=== PATIENT | female | born 1950 | race Caucasian/White ===

== ENCOUNTER 2016-10-28 06:53 | Day surgery (SDC) | payer OTHER ==
[2016-10-28] MEDS ORDERED: Lactated Ringers 1,000 ML IV ONE ×2 (07:18→09:51)
[2016-10-28] MEDS ORDERED: Lactated Ringers 1,000 ML IV SCH (07:30)
[2016-10-28] MEDS ORDERED: DIPRIVAN 200 MG/20 ML IV ONE (09:30)
[2016-10-28] MEDS ORDERED: Ketamine HCl 50 MG/ML IV ONE (09:30)
[2016-10-28 10:42] VITALS: O2SAT 97
[2016-10-28 13:45] VITALS: BP 126/72; PULSE 56
--- NOTE | 2016-10-29 16:11 | OP ---
SURGERY DATE: 10/28/16 SURGERY TIME: 906 PREOPERATIVE DIAGNOSIS: 1. NEEDS SCREENING COLONOSCOPY. 2. REFLUX DISEASE. POSTOPERATIVE DIAGNOSIS: 1. GASTRITIS. 2. SMALL HIATAL HERNIA. 3. COLORECTAL POLYPS. PROCEDURE: 1. EGD with biopsy. 2. Colonoscopy WITH hot forceps polypectomy X 3. SURGEON: Dr. Morena Padilla. ANESTHESIA: MAC. ESTIMATED BLOOD LOSS: Minimal. COMPLICATIONS: None. SPECIMENS: 1. Antral biopsy. 2. Hepatic flexure polyp. 3. Descending colon polyp. 4. Rectal polyp. HISTORY OF PRESENT ILLNESS: This is a 66 y/o female who presents for screening colonoscopy. She also has reflux disease and so she is also going to be having an EGD. All risks, benefits, and alternatives to both procedures were discussed with the patient preoperatively. She understands and agrees to proceed. She was seen in the preoperative area and her remaining questions were answered. PROCEDURE DETAILS: She was brought back to the endoscopy suite. Anesthesia was induced. She was laid in the left lateral decubitus position. A complete time-out was performed. The scope was inserted into the mouth, oropharynx, and down into the esophagus. The upper and mid esophagus looked normal. In the distal esophagus, there was a very small hiatal hernia. The patient really does not have any reflux changes at the gastroesophageal junction site. The scope was advanced easily into the stomach. The stomach did have some mild to moderate gastritis throughout the stomach. The scope was advanced further into the duodenum. The duodenum looked normal. The scope was withdrawn back into the stomach. Biopsies were taken in the antrum to rule out any Helicobacter pylori disease. These were done with cold forceps. The sites were hemostatic after biopsy. On a retroflex view, we did revisualize the small hiatal hernia and some mild gastritis. There were no other findings throughout the entire stomach. The scope was then desufflated and then the scope was carefully withdrawn. The patient tolerated this procedure well. She was then repositioned for colonoscopy. Digital rectal exam was done. This was normal. Scope was inserted and carefully advanced to the cecum. There was a small amount of liquid stool throughout the colon that had to be suctioned free and irrigated. A very small or flat lesion could be missed. Slight tortuosity in the descending colon was navigated with very gentle abdominal pressure. We were able to guide the scope all the way to the level of the cecum. The ileocecal valve as well as the appendiceal orifice were visualized. The scope was then carefully withdrawn taking a good circumferential view. There were 3 polyps that were identified, 1 in the hepatic flexure, 1 in the descending colon, and 1 in the rectum. All appeared benign. All were taken with hot forceps polypectomy in entirety and sites were all hemostatic. I did not see any significant other findings. The colon mucosa looked very healthy. The scope was able to be withdrawn. The patient tolerated the procedure very well. There were no immediate complications. Plan will be for a repeat colonoscopy in approximately 3 years for screening due to her polyp disease. We will repeat this sooner should she have any new symptoms and we will repeat her EGD on a PRN basis. She will be taking proton pump inhibitor therapy to help with her reflux symptoms as well as her gastritis.
== END 2016-10-28 11:15 | disposition home or self-care (01) ==
LOC: SDC 06:53
PROVIDERS: ATTEND Surgery
PROC: 0DB68ZX Excision of Stomach, Via Natural or Artificial Opening Endoscopic, Diagnostic (ICD-10-PCS; principal; 2016-10-28)
PROC: 0DBM8ZX Excision of Descending Colon, Via Natural or Artificial Opening Endoscopic, Diagnostic (ICD-10-PCS; 2016-10-28)
PROC: 0DBP8ZX Excision of Rectum, Via Natural or Artificial Opening Endoscopic, Diagnostic (ICD-10-PCS; 2016-10-28)
PROC: 0DBL8ZX Excision of Transverse Colon, Via Natural or Artificial Opening Endoscopic, Diagnostic (ICD-10-PCS; 2016-10-28)
DX: K29.70 Gastritis, unspecified, without bleeding (principal); D12.3 Benign neoplasm of transverse colon; D12.4 Benign neoplasm of descending colon; K62.1 Rectal polyp; Z12.11 Encounter for screening for malignant neoplasm of colon; K21.9 Gastro-esophageal reflux disease without esophagitis; K44.9 Diaphragmatic hernia without obstruction or gangrene
CPT/HCPCS: 00740; 00810; 36415; 88305; J2704

== ENCOUNTER 2017-11-01 12:48 | Emergency (ER) | payer OTHER ==
--- NOTE | 2017-11-01 13:47 | ERPHSYRPT ---
- History of Present Illness Time Seen by Provider: 11/01/17 13:34 Source: patient Exam Limitations: no limitations Patient Subjective Stated Complaint: PT states "I do not know what I did to my left hip but it really hurts. I was exercising last and on monday it started to hurt and now I can barely move my hip at all." Triage Nursing Assessment: Pt alert and oriented X 3, skin pwd. PT able to bear minimal weight on her left hip, moves the extremety gingerly, groaning in pain. Pt has no shortening or rotation noted, CSM X 4 Physician History: The patient is a 67-year-old female complaining of pain in her left hip, left buttocks, and left groin that has been intermittent since last Monday morning. On she started an exercise called not in climbing in which you lift and twist your legs one at a time as high as you can go with it. After the exercise, she felt okay but the next morning her left hip was hurting significantly. She thought she had pulled a muscle and took it easy that Monday. Over the weekend and for the next several days the pain was intermittent. Yesterday the pain was not as bad so she was doing some walking. Today the pain is much worse again. The pain is much worse when she lifts her left leg or when she twists it at the hip. She denies fever or chills. She denies abdominal pain or nausea. She denies urinary problems. She denies abdominal pain. Her past medical history is significant for hypothyroidism, GERD, and headaches. Method of Injury: sports injury Occurred: days ago (5) Quality: intermittent, aching, sharpness Severity of Pain-Max: severe Severity of Pain-Current: severe Lower Extremities Pain: hip: left Modifying Factors: Improves With: movement Associated Symptoms: none Allergies/Adverse Reactions: No Known Allergies Allergy (Verified 03/10/17 13:24) Home Medications: Levothyroxine Sodium [Synthroid] 50 mcg PO DAILY 03/19/12 [History] Omeprazole 20 MG [Prilosec 20 mg] 20 mg PO DAILY 10/25/16 [History] Indomethacin 50 mg PO TID 03/10/17 [History] Hx Tetanus, Diphtheria Vaccination/Date Given: No Hx Influenza Vaccination/Date Given: Yes Hx Pneumococcal Vaccination/Date Given: No Immunizations Up to Date: Yes - Review of Systems Constitutional: No Fever, No Chills Eyes: No Symptoms Ears, Nose, & Throat: No Symptoms Respiratory: No Cough, No Dyspnea Cardiac: No Chest Pain, No Edema, No Syncope Abdominal/Gastrointestinal: No Abdominal Pain, No Nausea, No Vomiting, No Diarrhea Genitourinary Symptoms: No Dysuria Musculoskeletal: Joint Pain, No Back Pain, No Neck Pain Skin: No Rash Neurological: No Dizziness, No Focal Weakness, No Sensory Changes Psychological: No Symptoms Endocrine: No Symptoms Hematologic/Lymphatic: No Symptoms Immunological/Allergic: No Symptoms All Other Systems: Reviewed and Negative - Past Medical History Pertinent Past Medical History: Yes Neurological History: Other ENT History: Other Cardiac History: No Pertinent History Respiratory History: No Pertinent History Endocrine Medical History: Hypothyroidism Musculoskeletal History: Osteoarthritis GI Medical History: GERD History: No Pertinent History Psycho-Social History: No Pertinent History Female Reproductive Disorders: Fibroids Other Medical History: fractured skull at 17 mos old, heart cath, - Past Surgical History Past Surgical History: Yes Neuro Surgical History: No Pertinent History Cardiac: No Pertinent History Gastrointestinal: No Pertinent History Genitourinary: No Pertinent History Musculoskeletal: No Pertinent History Female Surgical History: Hysterectomy, Other Other Surgical History: t&a. BSO - Social History Smoking Status: Never smoker Exposure to second hand smoke: No Drug Use: none Patient Lives Alone: No - Female History Hx Now: No - Nursing Vital Signs Nursing Vital Signs: Initial Vital Signs Temperature 98.6 F 11/01/17 12:54 Pulse Rate 70 11/01/17 12:54 Respiratory Rate 18 11/01/17 12:54 Blood Pressure 180/95 11/01/17 12:54 O2 Sat by Pulse Oximetry 97 11/01/17 12:54 Pain Scale Pain Intensity 4 - Physical Exam General Appearance: moderate distress Eyes, Ears, Nose, Throat Exam: moist mucous membranes Neck Exam: non-tender, supple Cardiovascular/Respiratory Exam: chest non-tender, normal breath sounds, regular rate/rhythm, no respiratory distress Gastrointestinal/Abdominal Exam: non-tender, guarding Back Exam: normal inspection, No vertebral tenderness Hips Exam: right: non-tender, normal inspection, normal range of motion, left: limited range of motion, pain, soft tissue tenderness Legs Exam: right leg: non-tender, normal inspection, normal range of motion, left leg: soft tissue tenderness (left inner thigh and groin) Knees Exam: bilateral knee: non-tender, normal inspection Ankle Exam: bilateral ankle: non-tender, normal inspection Foot Exam: bilateral foot: non-tender, normal inspection Neuro/Tendon Exam: normal sensation, normal motor functions Mental Status Exam: alert, oriented x 3, cooperative Skin Exam: normal color, warm, dry SpO2 Interpretation: normal SpO2: 97 Oxygen Delivery: Room Air - Radiology Exams Left Hip X-ray Interpretation: Teleradiologist Report, Negative, No Fracture (per Dr Alaniz) Pelvis X-ray Interpretation: Teleradiologist Report, Negative, No Fracture (per Dr Alaniz) Ordered Tests: Active Orders 24 hr Category Date Time Status HIP UNI (2V) INCL PEL IF DONE Stat Exams 11/01/17 15:09 Completed BMP Stat Lab 11/01/17 14:15 Completed CBC W DIFF Stat Lab 11/01/17 14:15 Completed D-DIMER QUANTITATION Stat Lab 11/01/17 14:15 Completed Medication Summary Discontinued Medications Generic Name Dose Route Start Last Admin Trade Name Manjula PRN Reason Stop Dose Admin Cyclobenzaprine HCl 5 mg 11/01/17 13:55 11/01/17 14:01 Cyclobenzaprine 10 Mg PO 11/01/17 13:56 5 mg STAT ONE Administration Cyclobenzaprine HCl Confirm 11/01/17 14:01 Cyclobenzaprine 10 Mg Administered 11/01/17 14:02 Dose 10 mg .ROUTE .[employer] ONE Lab/Rad Data: Laboratory Result Diagrams 11/01/17 14:15 11/01/17 14:15 Laboratory Results 11/01/17 11/01/17 11/01/17 Range/Units 14:15 14:15 14:15 WBC 7.8 (4.0-10.5) K/mm3 RBC 4.59 (4.1-5.4) M/mm3 Hgb 13.5 (12.0-16.0) gm/dl Hct 40.3 (35-47) % MCV 87.8 (78-100) fl MCH 29.4 (26-32) pg MCHC 33.5 (32-36) g/dl RDW 14.3 H (11.5-14.0) % Plt Count 344 (150-450) K/mm3 MPV 9.4 (6-9.5) fl Gran % 66.0 (36.0-66.0) % Eos # (Auto) 0.09 (0-0.5) Absolute Lymphs (auto) 1.91 (1.0-4.6) Absolute Monos (auto) 0.60 (0.0-1.3) Lymphocytes % 24.6 (24.0-44.0) % Monocytes % 7.7 (0.0-12.0) % Eosinophils % 1.2 (0.00-5.0) % Basophils % 0.5 (0.0-0.4) % Absolute Granulocytes 5.14 (1.4-6.9) Basophils # 0.04 (0-0.4) D-Dimer 487 (215-500) ng/mL Sodium 143 (137-145) mmol/L Potassium 4.2 (3.5-5.1) mmol/L Chloride 106 (98-107) mmol/L Carbon Dioxide 29 (22-30) mmol/L Anion Gap 11.7 (5-15) MEQ/L BUN 23 H (7-17) mg/dL Creatinine 0.84 (0.52-1.04) mg/dL Estimated GFR > 60.0 ML/MIN Glucose 93 (74-106) mg/dL Calcium 9.6 (8.4-10.2) mg/dL - Progress Progress: improved Counseled pt/family regarding: rad results - Departure Time of Disposition: 17:00 Departure Disposition: Home Clinical Impression: Muscle strain Condition: Stable Critical Care Time: No Referrals: QUENTIN MILLER [Primary Care Provider] - Additional Instructions: You have pulled a muscle in her left hip. The x-rays of your left hip and pelvis were both negative except for some mild arthritis in your left hip. You were given Flexeril 5 mg in the ER. Continue to take Flexeril 5 mg every 8 hours as needed. Take it easy for the next few days and that they pulled muscle repair itself. Follow-up as needed. Prescriptions: Cyclobenzaprine HCl [Flexeril] 5 mg PO Q8H PRN PRN #10 tablet PRN Reason: Pain
[2017-11-01] MEDS ORDERED: Cyclobenzaprine 10 MG PO ONE (13:55)
[2017-11-01] MEDS ORDERED: Cyclobenzaprine 10 MG ONE (14:01)
[2017-11-01 14:35] LABS: BASOPHIL % 0.5 % (0.0-0.4); Basophil (Absolute #) 0.04 (0-0.4); Eosinophil % 1.2 % (0.00-5.0); Eosinophil (Absolute #) 0.09 (0-0.5); Granulocyte Absolute (ANC) 5.14 (1.4-6.9); Hematocrit 40.3 % (35-47); Hemoglobin 13.5 gm/dl (12.0-16.0); Lymphocyte (Absolute #) 1.91 (1.0-4.6); Lymphocytes % 24.6 % (24.0-44.0); Mean Cell Volume 87.8 fl (78-100); Mean Corpuscular Hemoglobin 29.4 pg (26-32); Mean Corpuscular Hgb Concent. 33.5 g/dl (32-36); Mean Platelet Volume 9.4 fl (6-9.5); Monocytes % 7.7 % (0.0-12.0); Platelet Count 344 K/mm3 (150-450); Red Blood Count 4.59 M/mm3 (4.1-5.4); Red Cell Distribution Width 14.3 % (11.5-14.0); White Blood Count 7.8 K/mm3 (4.0-10.5)
[2017-11-01 14:47] LABS: ANION GAP 11.7 MEQ/L (5-15); BLOOD UREA NITROGEN 23 mg/dL (7-17); CHLORIDE 106 mmol/L (98-107); Calcium 9.6 mg/dL (8.4-10.2); Carbon Dioxide 29 mmol/L (22-30); Creatinine 1 0.84 mg/dL (0.52-1.04); Glucose 93 mg/dL (74-106); Potassium 4.2 mmol/L (3.5-5.1); SODIUM 143 mmol/L (137-145)
--- NOTE | 2017-11-01 15:56 | XRAY ---
Exam: Two-view left hip series including an AP film of the pelvis from 11/01/2017. Comparison: Two-view left hip from 01/31/2017. Indication: Left hip pain, no known injury, pain for one week. Findings: 2 AP films of the pelvis including the hips and coned-down AP and frog-leg lateral views of the left hip were obtained. I note mild symmetric narrowing of both hip joint spaces. Minimal marginal acetabular spurs are seen within each hip. The pelvis reveals no fracture or dislocation. The sacroiliac joints reveal no significant abnormality. No other focal bone lesion is seen within the pelvis. Some small apparent calcified phleboliths are seen within the lower pelvis on each side of midline. The urinary bladder appears mildly distended. The left hip reveals no acute fracture or dislocation. There is a minimal spur at the lower medial margin of the left femoral head which I believe represents no change. Minimal hypertrophic change is seen at the margin of the greater trochanter of the left hip representing no change. No other focal bone lesion within the left hip is seen. Impression: 1. Mild symmetric osteoarthritis of both hip joints is seen. The appearance of the left hip is similar to 01/31/2017. 2. No fracture or other significant focal bone lesion is seen.
[2017-11-01 16:44] VITALS: BP 130/70; PULSE 88
[2017-11-01 17:00] VITALS: O2SAT 97
== END 2017-11-01 17:14 | disposition home or self-care (01) ==
LOC: ED 12:48
DX: T14.8XXA Other injury of unspecified body region, initial encounter (principal); Z79.899 Other long term (current) drug therapy; E03.9 Hypothyroidism, unspecified; K21.9 Gastro-esophageal reflux disease without esophagitis; M19.90 Unspecified osteoarthritis, unspecified site
CPT/HCPCS: 36415; 73502; 80048; 85025; 85379; 99284; A9270-GY

== ENCOUNTER 2018-11-21 15:48 | Day surgery (SDC) | payer OTHER ==
[2012-03-20 11:31] VITALS: BP 147/57
[2018-11-21] MEDS ORDERED: Marcaine 0.5% SDV 10 ML IJ ONE (15:49)
[2018-11-21] MEDS ORDERED: Depo-Medrol 40 MG/ML IM ONE (15:49)
[2018-11-21] MEDS ORDERED: Xylocaine 1% Vial 30 ML PF IJ ONE (15:49)
--- NOTE | 2018-11-21 16:55 | XRAY ---
Indication: Right trochanteric injection. Intraoperative fluoroscopy was provided for 25 seconds. Single digital spot image submitted for interpretation demonstrates needle tip just lateral to the right greater trochanter. Small amount of contrast injected for needle tip placement. Correlate with intraoperative findings/report.
--- NOTE | 2018-11-21 17:05 | XRAY ---
25 seconds fluoroscopy time in surgery for right greater trochanter injection.
--- NOTE | 2018-11-21 17:05 | XRAY ---
Indication: Left hip injection. Intraoperative fluoroscopy was provided for 11 seconds. Single digital spot image submitted for interpretation demonstrates needle tip just lateral to the left greater trochanter. Small amount of contrast injected for needle tip placement. Correlate with intraoperative findings/report.
--- NOTE | 2018-11-21 17:16 | XRAY ---
11 seconds fluoroscopy time in surgery for left greater trochanteric injection.
== END 2018-11-21 16:50 | disposition home or self-care (01) ==
LOC: SDC-PAIN 15:48
PROVIDERS: ATTEND Psychiatry & Neurology Pain Medicine
DX: M70.62 Trochanteric bursitis, left hip (principal); M70.61 Trochanteric bursitis, right hip; E03.9 Hypothyroidism, unspecified; Z79.899 Other long term (current) drug therapy
CPT/HCPCS: 20610; 73501; 77002; J1030; J2001; Q9966

== ENCOUNTER 2021-12-12 08:18 | Emergency (ER) | payer MEDICARE, OTHER ==
--- NOTE | 2021-12-12 08:25 | ERPHSYRPT ---
- History of Present Illness Time Seen by Provider: 12/12/21 08:24 Historian: patient, family Exam Limitations: no limitations Physician History: There is a 71-year-old female who is a patient of nurse practitioner Kenzie and presents with abdominal pain that has been present approximately 3 to 4 days. Patient states that the pain is generalized and is intermittently worse with cramping and radiates into her back bilaterally. Patient has associated nausea and diarrhea as well. Patient states there is no new medication but she did start Ozempic 8 weeks ago. Patient has a history of hypothyroidism and gastroesophageal reflux disease. Patient also has had a hysterectomy but no other surgeries. Patient has never had anything like this before. Patient denies chest pain. Patient denies shortness of breath. Timing/Duration: day(s) (3) Quality: cramping Abdominal Pain Onset Location: generalized abdomen Pain Radiation: back Severity of Pain-Max: moderate Severity of Pain-Current: moderate Associated Symptoms: diarrhea, nausea Previous symptoms: no prior history Allergies/Adverse Reactions: No Known Allergies Allergy (Verified 12/12/21 08:44) Home Medications: Levothyroxine Sodium [Synthroid] 75 mcg PO DAILY 03/19/12 [History] Omeprazole 20 MG [Prilosec 20 mg] 20 mg PO DAILY 10/25/16 [History] Indomethacin 25 mg PO DAILY 03/10/17 [History] Semaglutide [Ozempic] 1 ea WEEKLY 12/12/21 [History] Hx Tetanus, Diphtheria Vaccination/Date Given: No Hx Influenza Vaccination/Date Given: Yes Hx Pneumococcal Vaccination/Date Given: No Travel Risk - International Travel Have you traveled outside of the country in past 3 weeks: No - Coronavirus Screening Are you exhibiting any of the following symptoms?: No Close contact with a COVID-19 positive Pt in past 14-21 Days: No - Review of Systems Constitutional: No Symptoms Eyes: No Symptoms Ears, Nose, & Throat: No Symptoms Respiratory: No Symptoms Cardiac: No Symptoms Abdominal/Gastrointestinal: Abdominal Pain, Nausea, Diarrhea, No Vomiting, No Constipation Genitourinary Symptoms: No Symptoms Musculoskeletal: No Symptoms Skin: No Symptoms Neurological: No Symptoms Psychological: No Symptoms Endocrine: No Symptoms Hematologic/Lymphatic: No Symptoms Immunological/Allergic: No Symptoms All Other Systems: Reviewed and Negative - Past Medical History Pertinent Past Medical History: Yes Neurological History: No Pertinent History ENT History: Other Cardiac History: No Pertinent History Respiratory History: No Pertinent History Endocrine Medical History: Hypothyroidism Musculoskeletal History: Degenerative Disk Disease, Osteoarthritis GI Medical History: GERD History: No Pertinent History Psycho-Social History: No Pertinent History Female Reproductive Disorders: Fibroids Other Medical History: PATIENT IS FULLY VACCINATED FOR COVID-19. SX HX: HYSTERECTOMY, TONSILLECTOMY - Past Surgical History Past Surgical History: Yes Neuro Surgical History: No Pertinent History Cardiac: No Pertinent History Gastrointestinal: No Pertinent History Genitourinary: No Pertinent History Musculoskeletal: No Pertinent History Female Surgical History: Hysterectomy, Other Other Surgical History: t&a. BSO - Social History Smoking Status: Never smoker Exposure to second hand smoke: No Drug Use: none Patient Lives Alone: No - Nursing Vital Signs Nursing Vital Signs: Initial Vital Signs Temperature 97.0 F 12/12/21 08:36 Pulse Rate 96 H 12/12/21 08:36 Respiratory Rate 18 12/12/21 08:36 Blood Pressure 180/97 12/12/21 08:36 O2 Sat by Pulse Oximetry 97 12/12/21 08:36 Pain Scale Pain Intensity 9 - Physical Exam General Appearance: mild distress, alert, anxiety Eye Exam: PERRL/EOMI, eyes nml inspection Ears, Nose, Throat Exam: normal ENT inspection, moist mucous membranes Neck Exam: normal inspection, non-tender, supple, full range of motion Respiratory Exam: normal breath sounds, lungs clear, airway intact, No chest tenderness, No respiratory distress Cardiovascular Exam: regular rate/rhythm, normal heart sounds, normal peripheral pulses Gastrointestinal/Abdomen Exam: soft, normal bowel sounds, tenderness (Generalized), guarding (Generalized with palpation), No rebound Pelvic Exam: not done Rectal Exam: not done Back Exam: normal inspection, normal range of motion, No CVA tenderness, No vertebral tenderness Extremity Exam: normal inspection, normal range of motion, pelvis stable Neurologic Exam: alert, oriented x 3, cooperative, 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, normal mood/affect, nml cerebellar function, nml station & gait, sensation nml Skin Exam: normal color, warm, dry Lymphatic Exam: No adenopathy SpO2 Interpretation: normal O2 Delivery: Room Air - Course Nursing assessment & vital signs reviewed: Yes Ordered Tests: Active Orders 24 hr Category Date Time Status IV Insertion STAT Care 12/12/21 08:27 Active ABDOMEN AND PELVIS W/0 CONTRAS [CT] Stat Exams 12/12/21 09:03 Taken AMYLASE Stat Lab 12/12/21 08:40 Completed CBC W DIFF Stat Lab 12/12/21 08:40 Completed CMP Stat Lab 12/12/21 08:40 Completed LIPASE Stat Lab 12/12/21 08:40 Completed Lactic Acid Stat Lab 12/12/21 08:45 Completed UA W/RFX CULTURE Stat Lab 12/12/21 Ordered Medication Summary Discontinued Medications Generic Name Dose Route Start Last Admin Trade Name Manjula PRN Reason Stop Dose Admin Hydromorphone HCl 1 mg 12/12/21 08:44 12/12/21 08:48 Hydromorphone 1 Mg/1ml Inj 1 Mg/Ml Syringe IV 12/12/21 08:45 1 mg STAT ONE Administration Hydromorphone HCl Confirm 12/12/21 08:47 Hydromorphone 1 Mg/1ml Inj 1 Mg/Ml Syringe Administered 12/12/21 08:48 Dose 1 mg .ROUTE .[employer] ONE Sodium Chloride 1,000 mls @ 999 mls/hr 12/12/21 08:27 12/12/21 10:07 Sodium Chloride 0.9% 1000 Ml IV 12/12/21 09:27 Infused .Q1H1M STA Infusion Sodium Chloride Confirm 12/12/21 08:44 Sodium Chloride 0.9% 1000 Ml Administered 12/12/21 08:45 Dose 1,000 mls @ ud .ROUTE .[employer] ONE Levofloxacin/Dextrose 500 mg in 100 mls @ 100 mls/hr 12/12/21 09:53 12/12/21 09:59 Levofloxacin 500mg/100ml D5w IV 12/12/21 10:52 100 mls/hr STAT STA 100 mls/hr Administration Levofloxacin/Dextrose Confirm 12/12/21 09:58 Levofloxacin 500mg/100ml D5w Administered 12/12/21 09:59 Dose 500 mg in 100 mls @ ud IV .STK-MED ONE Metronidazole 500 mg 12/12/21 09:53 12/12/21 09:59 Metronidazole 500 Mg Tablet PO 12/12/21 09:54 500 mg STAT ONE Administration Metronidazole Confirm 12/12/21 09:58 Metronidazole 500 Mg Tablet Administered 12/12/21 09:59 Dose 500 mg .ROUTE .STK-[employer] ONE Ondansetron HCl 4 mg 12/12/21 08:44 12/12/21 08:47 Ondansetron Hcl 4 Mg/2 Ml Vial IV 12/12/21 08:45 4 mg STAT ONE Administration Ondansetron HCl Confirm 12/12/21 08:47 Ondansetron Hcl 4 Mg/2 Ml Vial Administered 12/12/21 08:48 Dose 4 mg .ROUTE .K-MED ONE Lab/Rad Data: Laboratory Result Diagrams 12/12/21 08:40 12/12/21 08:40 Laboratory Results 12/12/21 12/12/21 12/12/21 Range/Units 10:05 08:45 08:40 WBC (4.0-10.5) x10^3/uL RBC (4.1-5.4) x10^6/uL Hgb (12.0-16.0) g/dL Hct (35-47) % MCV (78-100) fL MCH (26-32) pg MCHC (32-36) g/dL RDW (11.5-14.0) % Plt Count (150-450) x10^3/uL MPV (7.5-11.0) fL Gran % (36.0-66.0) % Immature Gran % (Auto) (0.00-0.4) % Nucleat RBC Rel Count (0.00-0.1) % Eos # (Auto) (0-0.5) x10^3/uL Immature Gran # (Auto) (0.00-0.03) x10^3u/L Absolute Lymphs (auto) (1.0-4.6) x10^3/uL Absolute Monos (auto) (0.0-1.3) x10^3/uL Absolute Nucleated RBC (0.00-0.01) x10^3u/L Lymphocytes % (24.0-44.0) % Monocytes % (0.0-12.0) % Eosinophils % (0.00-5.0) % Basophils % (0.0-0.4) % Absolute Granulocytes (1.4-6.9) x10^3/uL Basophils # (0-0.4) x10^3/uL Sodium 139 (137-145) mmol/L Potassium 4.0 (3.5-5.1) mmol/L Chloride 106 (98-107) mmol/L Carbon Dioxide 22 (22-30) mmol/L Anion Gap 15.7 H (5-15) MEQ/L BUN 25 H (7-17) mg/dL Creatinine 0.98 (0.52-1.04) mg/dL Estimated GFR 59.5 ML/MIN Glucose 111 H (74-106) mg/dL Lactic Acid 1.0 (0.4-2.0) Calcium 9.7 (8.4-10.2) mg/dL Total Bilirubin 0.70 (0.2-1.3) mg/dL AST 24 (14-36) U/L ALT 17 (0-35) U/L Alkaline Phosphatase 96 (38-126) U/L Serum Total Protein 7.9 (6.3-8.2) g/dL Albumin 4.7 (3.5-5.0) g/dL Amylase 105 (30-110) U/L Lipase 134 (23-300) U/L Influenza Type A Ag NEGATIVE (NEGATIVE) Influenza Type B Ag NEGATIVE (NEGATIVE) RSV (PCR) NEGATIVE (Negative) SARS-CoV-2 (PCR) NEGATIVE (NEGATIVE) 12/12/21 Range/Units 08:40 WBC 8.4 (4.0-10.5) x10^3/uL RBC 5.08 (4.1-5.4) x10^6/uL Hgb 14.6 (12.0-16.0) g/dL Hct 43.3 (35-47) % MCV 85.2 (78-100) fL MCH 28.7 (26-32) pg MCHC 33.7 (32-36) g/dL RDW 13.4 (11.5-14.0) % Plt Count 370 (150-450) x10^3/uL MPV 9.6 (7.5-11.0) fL Gran % 65.4 (36.0-66.0) % Immature Gran % (Auto) 0.2 (0.00-0.4) % Nucleat RBC Rel Count 0.0 (0.00-0.1) % Eos # (Auto) 0.10 (0-0.5) x10^3/uL Immature Gran # (Auto) 0.02 (0.00-0.03) x10^3u/L Absolute Lymphs (auto) 2.00 (1.0-4.6) x10^3/uL Absolute Monos (auto) 0.74 (0.0-1.3) x10^3/uL Absolute Nucleated RBC 0.00 (0.00-0.01) x10^3u/L Lymphocytes % 23.9 L (24.0-44.0) % Monocytes % 8.8 (0.0-12.0) % Eosinophils % 1.2 (0.00-5.0) % Basophils % 0.5 (0.0-0.4) % Absolute Granulocytes 5.47 (1.4-6.9) x10^3/uL Basophils # 0.04 (0-0.4) x10^3/uL Sodium (137-145) mmol/L Potassium (3.5-5.1) mmol/L Chloride (98-107) mmol/L Carbon Dioxide (22-30) mmol/L Anion Gap (5-15) MEQ/L BUN (7-17) mg/dL Creatinine (0.52-1.04) mg/dL Estimated GFR ML/MIN Glucose (74-106) mg/dL Lactic Acid (0.4-2.0) Calcium (8.4-10.2) mg/dL Total Bilirubin (0.2-1.3) mg/dL AST (14-36) U/L ALT (0-35) U/L Alkaline Phosphatase (38-126) U/L Serum Total Protein (6.3-8.2) g/dL Albumin (3.5-5.0) g/dL Amylase (30-110) U/L Lipase (23-300) U/L Influenza Type A Ag (NEGATIVE) Influenza Type B Ag (NEGATIVE) RSV (PCR) (Negative) SARS-CoV-2 (PCR) (NEGATIVE) - Progress Progress: improved, re-examined Progress Note: 12/12/21 09:54 CAT scan of the abdomen pelvis without contrast shows dilated loops of small bowel with mild mesenteric fat stranding small amount of ascites without definite transition point although decompressed distal small bowel is present. ? Partial SBO or nonspecific enteritis. Counseled pt/family regarding: lab results, diagnosis, need for follow-up, rad results - Departure Departure Disposition: Home Clinical Impression: Enteritis Condition: Stable Critical Care Time: No Referrals: FLOR WELLS NP [Primary Care Provider] - Follow up/PCP as directed Additional Instructions: Drink plenty of clear liquids. Take your medication as prescribed. Follow-up with your primary care physician for further evaluation management. Return to the emergency department if symptoms worsen. Prescriptions: Ondansetron ODT 4 MG [Zofran Odt 4 mg] 4 mg PO Q6H PRN PRN #10 tablet PRN Reason: Vomiting Metronidazole 500 mg [Flagyl 500 MG] 500 mg PO TID #21 tablet
[2021-12-12] MEDS ORDERED: Sodium Chloride 0.9% 1000 ML 1,000 ML ONE (08:44)
[2021-12-12] MEDS: Sodium Chloride 0.9% 1000 ML 1,000 ML IV STA (08:46)
[2021-12-12] MEDS ORDERED: Zofran 4 MG/2 ML VIAL ONE (08:47)
[2021-12-12] MEDS ORDERED: Hydromorphone 1 mg/ml Injection ONE (08:47)
[2021-12-12] MEDS: Zofran 4 MG/2 ML VIAL IV ONE (08:47)
[2021-12-12] MEDS: Hydromorphone 1 mg/ml Injection IV ONE (08:48)
[2021-12-12 08:49] LABS: Absolute Neutrophil Ct (ANC) 5.47 x10^3/uL (1.4-6.9); Basophil (Absolute #) 0.04 x10^3/uL (0-0.4); Eosinophil % 1.2 % (0.00-5.0); Hematocrit 43.3 % (35-47); Hemoglobin 14.6 g/dL (12.0-16.0); Lymphocytes % 23.9 % (24.0-44.0); Mean Cell Volume 85.2 fL (78-100); Mean Corpuscular Hemoglobin 28.7 pg (26-32); Mean Corpuscular Hgb Concent. 33.7 g/dL (32-36); Mean Platelet Volume 9.6 fL (7.5-11.0); Monocyte (Absolute #) 0.74 x10^3/uL (0.0-1.3); Monocytes % 8.8 % (0.0-12.0); Neutrophil % 65.4 % (36.0-66.0); Platelet Count 370 x10^3/uL (150-450); Red Blood Count 5.08 x10^6/uL (4.1-5.4); Red Cell Distribution Width 13.4 % (11.5-14.0); White Blood Count 8.4 x10^3/uL (4.0-10.5)
[2021-12-12 09:03] LABS: ALBUMIN 4.7 g/dL (3.5-5.0); ANION GAP 15.7 MEQ/L (5-15); BILIRUBIN,TOTAL 0.7 mg/dL (0.2-1.3); Calcium 9.7 mg/dL (8.4-10.2); Creatinine 1 0.98 mg/dL (0.52-1.04); EST GLOMERULAR FILTRATION RATE 59.5 ML/MIN; Total Protein 7.9 g/dL (6.3-8.2)
[2021-12-12] MEDS ORDERED: Flagyl 500 MG ONE (09:58)
[2021-12-12] MEDS ORDERED: Levofloxacin 500MG/100ML D5W 500 MG/100 ML BAG IV ONE (09:58)
[2021-12-12] MEDS: Levofloxacin 500MG/100ML D5W 500 MG/100 ML BAG IV STA (09:59)
[2021-12-12] MEDS: Flagyl 500 MG PO ONE (09:59)
[2021-12-12 10:47] LABS: INFLUENZA A NEGATIVE (NEGATIVE); INFLUENZA B NEGATIVE (NEGATIVE); RESPIRATORY SYNCTIAL VIRUS NEGATIVE (Negative); SARS-CoV-2 Xpert Express NEGATIVE (NEGATIVE)
[2021-12-12 11:19] VITALS: BP 103/70; PULSE 72; O2SAT 94
--- NOTE | 2021-12-12 20:05 | XRAY ---
Indication: Abdomen pain, bloating, diarrhea. Suspect Covid 19. Multiple contiguous axial images obtained through the abdomen and pelvis without contrast. Comparison: None Study is slightly degraded by respiration artifact throughout. Lung bases demonstrates tiny right posterior gutter calcified granuloma and minimal bilateral dependent atelectasis. No infiltrate or effusion. Heart not enlarged. Stomach distended with food/fluid. Several small bowel loops are mildly fluid distended with fluid level in, ileus versus enteritis. Pelvis demonstrates small free fluid possibly reactive. No walled off fluid collection or free air. Appendix upper limits of normal without periappendiceal stranding. Previous hysterectomy. Normal bowel gas in right hemicolon. Remaining liver, gallbladder, pancreas, spleen, adrenal glands, kidneys, ureters, and bladder are unremarkable for noncontrast exam. Mild scattered aortoiliac calcifications without AAA. Osseous structures intact with mild osteopenia, minimal degenerative changes throughout the spine, T12 vertebral hemangioma, moderate L5-S1 degenerative disc disease, and moderate degenerative changes both hips. Impression: 1. Mild fluid distended small bowel loops with fluid leveling, ileus versus enteritis. Partial or early small bowel obstruction not completely excluded. Small pelvic free fluid presumed reactive. 2. Chronic findings including right lung base calcified granuloma, arteriosclerotic disease, and chronic bony findings. Comment: Preliminary interpretation made by [facility]. No critical discrepancy.
== END 2021-12-12 11:27 | disposition home or self-care (01) ==
LOC: ED 08:18
DX: K52.9 Noninfective gastroenteritis and colitis, unspecified (principal); R10.84 Generalized abdominal pain; R19.7 Diarrhea, unspecified; R11.0 Nausea; Z79.899 Other long term (current) drug therapy; Z20.828 Contact with and (suspected) exposure to other viral communicable diseases
CPT/HCPCS: 0241U; 36415; 74176; 80053; 82150; 83605; 83690; 85025; 96360; 96365; 96374; 96375; 99284; J1170; J1956; J2405; A9270-GY

== ENCOUNTER 2022-07-23 11:36 | Emergency (ER) | payer MEDICARE, OTHER ==
[2022-07-23] MEDS ORDERED: XYLOCAINE 1% HCL 20 ML MDV IJ ONE (11:37)
[2022-07-23] MEDS ORDERED: Adacel Vial IM ONE ×2 (12:00→12:15)
[2022-07-23] MEDS ORDERED: Rocephin 1000 MG INJ IM ONE (12:01)
[2022-07-23 12:06] VITALS: BP 149/94; PULSE 74; O2SAT 98
[2022-07-23] MEDS ORDERED: Rocephin 1000 MG INJ ONE (12:15)
--- NOTE | 2022-07-23 12:18 | ERPHSYRPT ---
- History of Present Illness Time Seen by Provider: 07/23/22 12:13 Source: patient Exam Limitations: no limitations Patient Subjective Stated Complaint: pt got a fish hook in her second finger of her right finger Triage Nursing Assessment: Pt brought to the ER by her , hypertensive, rates pain as 5/10, fish hook in the distal end of the second finger of the right hand, pulses normal, no other injuries Physician History: pt got a fish hook in her second finger of her right finger fish hook in the distal end of the second finger of the right hand, Occurred: just prior to arrival Extremities Pain Location: 2nd finger: right (fish hook) Allergies/Adverse Reactions: No Known Allergies Allergy (Verified 07/23/22 12:07) Home Medications: Levothyroxine Sodium [Synthroid] 75 mcg PO DAILY 03/19/12 [History] Omeprazole 20 MG [Prilosec 20 mg] 20 mg PO DAILY 10/25/16 [History] Indomethacin 25 mg PO DAILY 03/10/17 [History] Semaglutide [Ozempic] 1 ea WEEKLY 12/12/21 [History] Hx Tetanus, Diphtheria Vaccination/Date Given: No Hx Influenza Vaccination/Date Given: Yes Hx Pneumococcal Vaccination/Date Given: No Travel Risk - International Travel Have you traveled outside of the country in past 3 weeks: No - Coronavirus Screening Are you exhibiting any of the following symptoms?: No Close contact with a COVID-19 positive Pt in past 14-21 Days: No - Vaccine Status Have you recieved a Covid-19 vaccination: Yes [employer]: Moderna - Vaccination Dates Date of 2cond Vaccination (if applicable): 2020 Comment: / - Review of Systems Constitutional: No Symptoms Eyes: No Symptoms Ears, Nose, & Throat: No Symptoms Respiratory: No Symptoms Cardiac: No Symptoms Abdominal/Gastrointestinal: No Symptoms Genitourinary Symptoms: No Symptoms Musculoskeletal: No Symptoms Skin: No Symptoms Neurological: No Symptoms Psychological: No Symptoms Endocrine: No Symptoms Hematologic/Lymphatic: No Symptoms - Past Medical History Pertinent Past Medical History: Yes Neurological History: No Pertinent History ENT History: Other Cardiac History: No Pertinent History Respiratory History: No Pertinent History Endocrine Medical History: Hypothyroidism Musculoskeletal History: Degenerative Disk Disease, Osteoarthritis GI Medical History: GERD History: No Pertinent History Psycho-Social History: No Pertinent History Female Reproductive Disorders: Fibroids Other Medical History: PATIENT IS FULLY VACCINATED FOR COVID-19. SX HX: HYSTERECTOMY, TONSILLECTOMY - Past Surgical History Past Surgical History: Yes Neuro Surgical History: No Pertinent History Cardiac: No Pertinent History Gastrointestinal: No Pertinent History Genitourinary: No Pertinent History Musculoskeletal: No Pertinent History Female Surgical History: Hysterectomy, Other Other Surgical History: t&a. BSO - Social History Smoking Status: Never smoker Exposure to second hand smoke: No Drug Use: none Patient Lives Alone: No - Nursing Vital Signs Nursing Vital Signs: Initial Vital Signs Temperature 97.2 F 07/23/22 11:45 Pulse Rate 74 07/23/22 11:45 Blood Pressure 149/94 07/23/22 11:45 O2 Sat by Pulse Oximetry 98 07/23/22 11:45 Pain Scale Pain Intensity 5 - Physical Exam General Appearance: no apparent distress Eyes, Ears, Nose, Throat Exam: normal ENT inspection Neck Exam: normal inspection Cardiovascular/Respiratory Exam: chest non-tender Abdominal Exam: non-tender Shoulder Exam: normal inspection Elbow/Forearm Exam: normal inspection Wrist Exam: normal inspection Hand Exam: soft tissue tenderness (fish hansa in distal phalynx) SpO2: 98 - Course Nursing assessment & vital signs reviewed: Yes - Radiology Exams Hand X-ray Interpretation: Reviewed by me, Negative, No Fracture Ordered Tests: Active Orders 24 hr Category Date Time Status Wound Care STAT Care 07/23/22 12:01 Active HAND (MINIMUM 3 VIEWS) Stat Exams 07/23/22 12:02 Ordered Medication Summary Discontinued Medications Generic Name Dose Route Start Last Admin Trade Name Freq PRN Reason Stop Dose Admin Ceftriaxone Sodium 1,000 mg 07/23/22 12:01 Ceftriaxone Sodium 1000 Mg Inj Vial IM 07/23/22 12:02 STAT ONE Diphtheria/Tetanus/Acell Pertussis 0.5 ml 07/23/22 12:00 Tdap --Diph,Pertuss(Acell),Tet Vac/Pf 0.5 Ml Vial IM 07/23/22 12:01 .ONCE ONE - Progress Progress: improved Progress Note: 07/23/22 12:16 [place] is removed without any complication. Endosol tetanus toxoid given. Patient was also given 1 g of Rocephin intramuscular. Dressing was applied. Patient tolerated procedure well. Counseled pt/family regarding: diagnosis, need for follow-up, rad results Medical Desision Making - Discussion of managment Agreed on:: Treatment plan, need for follow-up - Diagnostic Testing Diagnostic test were ordered, analyzed, and reviewed by me: Yes Radiological Interpretation: Interpreted by me, Reviewed by me - Risk of complications Low Risk: Low risk of morbidity from additional dx testing or treatment - Departure Departure Disposition: Home Clinical Impression: Anatoliy solis in finger Condition: Stable Critical Care Time: Yes Critical Care Time(excluding separately billable procedures): Critical 30-74 mins Referrals: FLOR WELLS, [facility] [Primary Care Provider] - Follow up/PCP as directed Additional Instructions: Discharge/Care Plan REYNA COFFEY was seen on 07/23/22 in the Emergency Room. The patient was counseled regarding Diagnosis,Lab results, Imaging studies, need for follow up and when to return to the Emergency Room. Prescriptions given: Discharge Note I have spoken with the patient and/or caregivers. I have explained the patient's condition, diagnosis and treatment plan based on the information available to me at this time. I have answered the patient's and/or caregiver's questions and addressed any concerns. The patient and/or caregivers have as good understanding of the patient's diagnosis, condition and treatment plan as can be expected at this point. The vital signs have been stable. The patient's condition is stable and appropriate for discharge from the emergency department. The patient will pursue further outpatient evaluation with the primary care physician or other designated or consulting physician as outlined in the discharge instructions. The patient and/or caregivers are agreeable to this plan of care and follow-up instructions have been explained in detail. The patient and/or caregivers have received these instruction. The patient/and or caregivers are aware that any significant change in condition or worsening of symptoms should prompt an immediate return to this or the closest emergency department or call 911. REYNA COFFEY was seen on 07/23/22 n the Emergency Room. At that time you were treated for an emergent condition, during your visit Laboratory, Radiology and/or other procedures may have been ordered. It is very important that you follow-up with your Primary Care Physician FLOR WELLS within the next 24-48 hours to review your Emergency Room visit and the final results of testing that was ordered. Some test results such as Urine Cultures, Blood Cultures, and other cultures if ordered will not be finalized for 24-48 hours. If you do not have a Primary Care Provider please call the medical records department at [phone] ext [phone] to obtain a copy of your results or you may sign into our patient portal to obtain these results by visiting us @ [email or web address] and completing the following steps: 1. Click on the Patient Portal link 2. Click the Patient Self Enrollment Link to complete the enrollment form and entering your 3. Once the enrollment form is completed you will receive an email with a temporary ID and password at the email address you provided. 4. Next choose a user name and password. Your user name must be at least 4 characters long and your password must be at least 4 characters long. 5. Choose a security question from the list and provide your answer to the question. If you already have signed into the Health Portal you may access your Health Care Information 28/11 by the following steps: 1. Login to our website @ [email or web address] 2. Enter your original user name and password. FAQS The [facility] Health Portal is an online tool that contains your Lab Results, Radiology Reports, Visit History, Discharge Instructions and Health Summary Lab and Radiology Results will not be available for 72 hours on the portal. The Portal is a secure site, passwords are encryted and URLs are re-written so they cannot be copied and pasted. You and authorized family members are the only ones who can access your Portal. Also there is a timeout feature that protects your information if you leave the Portal page open. If you have technical difficulty please use the Contact Us link on the page this will allow you to submit any questions you have regarding the Portal or you may contact the Medical Record Department at [phone].
--- NOTE | 2022-07-23 20:22 | XRAY ---
Indication: 2nd finger fishhook. Comparison: None 3 view right hand demonstrates osteopenia, mild/moderate degenerative changes all IP joints, minimal degenerative changes all MCP joints, moderate 1st metacarpal multangular degenerative changes, radioulnar degenerative joint space narrowing, and ulnocarpal degenerative chondrocalcinosis. No other bony, articular, or soft tissue abnormalities.
== END 2022-07-23 12:41 | disposition home or self-care (01) ==
LOC: ED 11:36
DX: S61.240A Puncture wound with foreign body of right index finger without damage to nail, initial encounter (principal); W26.8XXA Contact with other sharp object(s), not elsewhere classified, initial encounter; W45.8XXA Other foreign body or object entering through skin, initial encounter; Z79.85 Long-term (current) use of injectable non-insulin antidiabetic drugs; Z79.899 Other long term (current) drug therapy
CPT/HCPCS: 10120; 73130; 90471; 90715; 96372; 99283; 99291; J0696

== ENCOUNTER 2022-11-14 10:35 | Day surgery (SDC) | payer MEDICARE, OTHER ==
[2022-11-14] MEDS ORDERED: Lactated Ringers 1,000 ML IV ONE ×2 (10:49→13:43)
[2022-11-14] MEDS ORDERED: Lactated Ringers 1,000 ML IV SCH (11:30)
[2022-11-14] MEDS ORDERED: Xylocaine-Mpf 2% 5 Ml Vial ONE (13:04)
[2022-11-14] MEDS ORDERED: DIPRIVAN 200 MG/20 ML IV ONE ×4 (13:04→14:05)
[2022-11-14 15:46] VITALS: BP 138/80; PULSE 54; O2SAT 97
--- NOTE | 2022-11-15 11:51 | OP ---
PROCEDURE DATE/TIME: 11/14/2022 1304 PREOPERATIVE DIAGNOSES: 1) Reflux disease. 2) Due for screening colonoscopy. POSTOPERATIVE DIAGNOSES: 1) Small hiatal hernia. 2) Reflux esophagitis. 3) Hemorrhagic gastritis. 4) Minimal D1 duodenitis. 5) Multiple colorectal polyp. 6) Fair but satisfactory prep. PROCEDURES: 1) EGD with biopsy. 2) Colonoscopy with hot snare polypectomy, cold snare polypectomy, tattoo dye placement and clip. PROCEDURE PERFORMED BY: Morena Padilla M.D. ANESTHESIA: MAC. ESTIMATED BLOOD LOSS: Minimal. COMPLICATIONS: None. SPECIMENS: 1) Proximal ascending colon polyp. 2) Hepatic flexure polyp. 3) Large irregular semi-sessile distal hepatic flexure polyp. 4) Second distal hepatic flexure polyp. 5) Third distal hepatic flexure polyp. 6) Fourth distal hepatic flexure polyp. 7) Splenic flexure polyp. 8) Distal sigmoid colon polyp. 9) Rectosigmoid colon polyp. 10) Rectal polyp. 11) Antral biopsy. 12) Gastric body biopsy. 13) Distal esophagus biopsy; rule out Gan's disease. HISTORY: This is a patient who presents for screening colonoscopy. She also has had significant reflux despite treatment. She would like to have an EGD as well. All risks, benefits, alternatives have been discussed with her preoperatively. She understands and agrees. She would like to proceed. I did personally see her prior to anesthesia and all questions have also been answered to her satisfaction. DESCRIPTION OF PROCEDURE: The patient was then laid in the left lateral decubitus position. Complete time out performed. Scope gently introduced into the mouth and oropharynx down to the esophagus, stomach and duodenum. The visualized portion of the second portion of the duodenum was very normal and healthy appearing. There was mild duodenitis in the bulb of D1. We withdrew the scope back into the stomach. The patient has pretty significant hemorrhagic gastritis. On her initial view into the stomach, there is a significant amount of old blood and blood-tinged fluid that was encountered that I immediately had suctioned. As we withdrew the scope back into the stomach, we did see the scattered old blood throughout the stomach and I did further irrigate this and try to suction this. I do not see any obvious bleeding ulcer. However, her gastritis appears to be significant enough to have caused a significant amount of old blood. I do think that she is going to have to have a follow up and start medical treatment due to this. I took biopsies in the antrum, biopsies in the body and sent all of this to pathology. Everything is hemostatic. I did not find any other concerning finding other than a small hiatal hernia that is minimal and visualized on retroflex view. As we withdrew the scope after insuring good hemostasis, we then visualized the gastroesophageal junction at 39 cm. There is some reflux esophagitis here which I took biopsies of and these cold forceps biopsies to pathology and then we visualized the remainder of her esophagus and there were no other concerning findings in her esophagus. All biopsy sites were hemostatic and satisfactory. She did very well with this procedure and then we repositioned her for the colonoscopy. We did our time out. First, we did a rectal exam and inspection and then the scope inserted and gently advanced to the level of the cecum. Her prep was fair. She did have some staining. I was able to irrigate the majority of this and give her a score of fair after the irrigation which was satisfactory for review today. She had multiple polyps and this was her most significant finding on colonoscopy. I will list them as follows: Please note that all polyps were taken out in entirety and all sites were hemostatic after removal. Listed will be any additional details for each polyp. One proximal ascending colon polyp with approximately 4 mm semi-sessile taken in entirety with cold snare, a hepatic flexure polyp very small taken with cold forceps in entirety, the large irregular semi-sessile distal hepatic flexure polyp did have a semi-pedunculated component it also had a broader semi-sessile base. It was about 2 cm in size. It was taken with hot snare encompassing the larger portion of this and then a second pass of the hot snare to encompass frond that was projecting posteriorly over the back side of the fold. After we did this the polyp was removed in entirety. The site looked very good. I did place two clips to close this site and defect with excellent hemostasis and then I also tattooed the site so we can survey this site on a short interval colonoscopy. The tattoo approximately 1 cm inferior and lateral to the site. Everything was hemostatic. Polyps removed in entirety. Polyp was also retrieved and then scope replaced. I did have to suction the polyp onto the end of the scope and fully remove the scope to get the polyp out due to its size. When we replaced the scope we found additional polyps as follows: There is a second distal hepatic flexure polyp about 5 to 7 cm taken with hot snare. The third distal hepatic flexure polyp approximately 2 mm and small taken with cold forceps, a fourth distal hepatic flexure polyp approximately 5 mm taken with hot snare, a splenic flexure polyp that was semi-sessile about 7 to 10 mm and taken with hot snare and then multiple small polyps taken with cold forceps and the distal sigmoid, rectosigmoid and rectum total of approximately four polyps sent in three separate jars and sent to pathology. All very small appearing. These were all taken with cold forceps. The patient tolerated all of these polypectomies well. There were no immediate complications. I did discuss with her family that she did have significant polyps removed and discussed all of her instructions as well as signs of what to look out for post-polypectomy syndrome bleeding or any other complication. Right now she is doing excellent. She will be taking it easy, no driving, and do a soft diet and then she will be following up with me as an outpatient to go through all the final results. Tentatively, my plan is to repeat EGD within three months and then repeat our colonoscopy within six months due to the large polyp taken in piecemeal approach. However, we may do the EGD and colonoscopy together in the realm of three to six months or change those plans based on how she is doing clinically and our final pathology report. Her family understands this as well and she will be following up with me as an outpatient.
== END 2022-11-14 15:45 | disposition home or self-care (01) ==
LOC: SDC 10:35
PROVIDERS: ATTEND Surgery
DX: Z12.11 Encounter for screening for malignant neoplasm of colon (principal); K21.9 Gastro-esophageal reflux disease without esophagitis; K44.9 Diaphragmatic hernia without obstruction or gangrene; K29.71 Gastritis, unspecified, with bleeding; K29.80 Duodenitis without bleeding; K62.1 Rectal polyp; D12.2 Benign neoplasm of ascending colon; D12.3 Benign neoplasm of transverse colon
CPT/HCPCS: 99100; J2704

== ENCOUNTER 2023-05-15 10:33 | Day surgery (SDC) | payer MEDICARE, OTHER ==
[2023-05-15] MEDS ORDERED: Lactated Ringers 1,000 ML IV SCH (11:00)
[2023-05-15 11:09] VITALS: RESP 16; O2SAT 97
[2023-05-15] MEDS ORDERED: DIPRIVAN 200 MG/20 ML IV ONE ×3 (13:31→14:15)
[2023-05-15] MEDS ORDERED: Versed 2 MG/2 ML Injection ONE (13:31)
[2023-05-15] MEDS ORDERED: GlucaGen 1 MG ONE (13:54)
[2023-05-15] MEDS ORDERED: Lactated Ringers 1,000 ML IV ONE (14:20)
[2023-05-15 15:57] VITALS: BP 142/75; PULSE 65; TEMP 98
--- NOTE | 2023-05-17 10:58 | OP ---
PROCEDURE DATE/TIME: 05/15/2023 6954 PREOPERATIVE DIAGNOSES: 1) Hemorrhagic gastritis. 2) History of colon polyp. POSTOPERATIVE DIAGNOSES: 1) Severe hemorrhagic gastritis with multiple ulcerations/erosion. 2) Mild duodenitis. 3) Gastroesophageal reflux disease. 4) Small hiatal hernia. 5) Diverticulosis. 6) Colon polyp. PROCEDURES: 1) EGD with biopsy. 2) Colonoscopy with cold forceps polypectomy. PROCEDURE PERFORMED BY: Morena Padilla M.D. ANESTHESIA: MAC. ESTIMATED BLOOD LOSS: Minimal. COMPLICATIONS: None. SPECIMENS: 1) Antral biopsy. 2) Cecal polyp. 3) Hepatic flexure polyp. 4) Rectosigmoid polyp. HISTORY: This is a patient with a history of significant polyps in her colon here for surveillance as well as a history of hemorrhagic gastritis. She has continued to have some upper abdominal symptoms. She was seen in the preoperative area. Her H&P and consent were reviewed with her and confirmed. All questions have been answered. DESCRIPTION OF PROCEDURE: She was brought back to the endoscopy suite, laid in the left lateral decubitus position. A complete time out was performed. We started with the EGD. The scope gently introduced into the mouth, oropharynx, down into the esophagus, stomach and duodenum. We immediately encountered a significant amount of inflammation in her stomach with severe gastritis with erosion and superficial ulceration with innumerable sites of clot that does not wash off and this was throughout the entirety of her stomach and quite significant. We were able to visualize the duodenum to approximately the second portion and she did have mild duodenitis. The scope was withdrawn back in the stomach. Antral biopsies were taken. We did a retroflex view as well this revisualized a small hiatal hernia and then the scope was unretroflexed and carefully withdrawn. She does have some free flow reflux as well. Otherwise, the esophagus looked much better than the stomach and there were no other significant findings and so the scope was completely withdrawn. The patient tolerated this part of the procedure well. She was then repositioned colonoscopy. First, a rectal exam was done. The scope was then inserted and gently advanced to the level of the cecum. The cecum and appendiceal orifice were clearly visualized and the edge of the ileocecal valve. The prep was satisfactory but there were areas with thicker liquid stool that we attempted to irrigate to improve our visualization and then we carefully withdrew the scope taking a circumferential view. As we withdrew the scope there were three polyps identified. They all were very small a cecal polyp, a hepatic flexure polyp and rectosigmoid polyp. There were all taken with cold forceps in entirety. The cecal polyp site in the mucosa here was very fragile and bled easily and so I did place a clip to insure post-procedure hemostasis this was very hemostatic after the clip was placed. We did also review our hepatic flexure site where she had a prior tattoo. I am not seeing an obvious regrowth here, this site is very difficult to survey. It has a very sharp angulation of the hepatic flexure. I can very clearly visualize the tattoo on the lateral wall but on the medial wall where the polyp is, I have went over this area many times trying to look in between the folds and I do not see any obvious regrowth but I do feel that this is a very difficult area to visualize anything that is flat given the anatomy here. Outside of mild diverticulosis, there were no other significant findings. The scope was fully withdrawn. The patient tolerated the procedure very well. All polyps have been sent to pathology. Tentatively, my plan will be to do an EGD in about three months due to the severe hemorrhagic gastritis and to tentatively repeat a C-scope in one year due to her significant polypectomy in a difficult region and continued polyps.
== END 2023-05-15 15:35 | disposition home or self-care (01) ==
LOC: SDC 10:33
PROVIDERS: ATTEND Surgery
DX: Z09 Encounter for follow-up examination after completed treatment for conditions other than malignant neoplasm (principal); Z86.010 Personal history of colon polyps; K29.71 Gastritis, unspecified, with bleeding; K29.80 Duodenitis without bleeding; K44.9 Diaphragmatic hernia without obstruction or gangrene; K21.9 Gastro-esophageal reflux disease without esophagitis; K57.30 Diverticulosis of large intestine without perforation or abscess without bleeding; D12.7 Benign neoplasm of rectosigmoid junction; D12.0 Benign neoplasm of cecum; D12.3 Benign neoplasm of transverse colon
CPT/HCPCS: 99100; J1610; J2250; J2704

== ENCOUNTER 2024-04-10 10:04 | Day surgery (SDC) | payer MEDICARE, OTHER ==
[2012-03-20 11:31] VITALS: BP 147/57
[2024-04-10] MEDS ORDERED: LIDOCAINE HCL 1% AMPUL 5 ML IJ ONE (10:05)
[2024-04-10] MEDS ORDERED: Decadron 4 MG INJ IV ONE (10:05)
[2024-04-10] MEDS ORDERED: Sodium Chloride 0.9(Preservative Free) 10 ML IJ ONE (10:05)
[2024-04-10] MEDS ORDERED: DIPRIVAN 200 MG/20 ML IV ONE (12:02)
--- NOTE | 2024-04-10 18:58 | XRAY ---
Indication: Right L4-S1 transforaminal CAROLYN. Intraoperative fluoroscopy provided for 23 seconds. 4 digital spot image submitted for interpretation demonstrates posterior needle tips projecting over the expected right L4 and L5 nerve roots. Small amount of contrast injected for needle tip placement. Correlate with intraoperative findings/report.
--- NOTE | 2024-04-10 19:00 | XRAY ---
Indication: Right piriformis injection. Intraoperative fluoroscopy provided for 8 seconds. Single digital spot image submitted for interpretation demonstrates posterior needle tip projecting over right piriformis. Small amount of contrast injected for needle tip placement. Correlate with intraoperative findings/report.
--- NOTE | 2024-04-10 19:23 | XRAY ---
23 seconds of fluoroscopy was used in surgery for a right L4-S1 transforaminal CAROLYN.
--- NOTE | 2024-04-10 19:23 | XRAY ---
8 seconds of fluoroscopy was used in surgery for a right piriformis injection.
== END 2024-04-10 12:37 | disposition home or self-care (01) ==
LOC: SDC-PAIN 10:04
PROVIDERS: ATTEND Psychiatry & Neurology Pain Medicine
DX: M54.16 Radiculopathy, lumbar region (principal); M79.18 Myalgia, other site
CPT/HCPCS: 20552; 64483; 64484; 72100; 72170; 77002; 77003; J1100; J2704; Q9966

== ENCOUNTER 2025-03-26 09:30 | Day surgery (SDC) | payer MEDICARE ==
[2012-03-20 11:31] VITALS: BP 147/57
[2025-03-26] MEDS ORDERED: Sodium Chloride 0.9(Preservative Free) 10 ML IJ ONE (09:31)
[2025-03-26] MEDS ORDERED: propofoL IV ONE (11:32)
--- NOTE | 2025-03-26 13:26 | XRAY ---
Indication: Left L4-S1 transforaminal CAROLYN. Intraoperative fluoroscopy provided for 28 seconds. 4 digital spot image submitted for interpretation demonstrates posterior needle tips projecting over expected left L4 and L5 nerve roots. Small amount of contrast injected for needle tip placement. Correlate with intraoperative findings/report.
--- NOTE | 2025-03-26 13:31 | XRAY ---
28 seconds of fluoroscopy was used in surgery for a left L4-S1 transforaminal CAROLYN.
[2025-03-26] MEDS ORDERED: Lactated Ringers 1,000 ML IV ONE (13:43)
== END 2025-03-26 12:12 | disposition home or self-care (01) ==
LOC: SDC-PAIN 09:30
PROVIDERS: ATTEND Psychiatry & Neurology Pain Medicine
DX: M54.16 Radiculopathy, lumbar region (principal)